=== PATIENT | female | born 1960 | race African-American/Black ===

== ENCOUNTER 2017-02-27 13:38 | Outpatient (CLI) | payer BC | END 2017-02-27 13:39 | disposition home or self-care (01) | LOC: BICCT 13:38 | PROVIDERS: ATTEND Orthopaedic Surgery | DX: M54.16 Radiculopathy, lumbar region (principal); M48.061 Spinal stenosis, lumbar region without neurogenic claudication; Z98.1 Arthrodesis status | CPT/HCPCS: 72131 ==

== ENCOUNTER 2018-09-11 10:04 | Outpatient (CLI) | payer BC ==
--- NOTE | 2018-09-11 11:07 | BD ---
DEXA BONE DENSITOMETRY: (Dual energy X-ray Absorptiometry) 09/11/2018 HISTORY: A 58-year-old black female for age-related, post menopausal osteoporosis screening examination. Heig ht 69 in. Weight 208 lbs. Age of menopause 33 years. COMPARISON: None available. FINDINGS: The bone mineral density (BMD) is given in grams per square centimeter (g/cm2): LUMBAR SPINE: BMD(g/cm2) T-score Z-score L1: 1.107 1.1 1.6 L2: 1.109 0.7 1.3 L3: 1.112 0.3 0.9 L4: 1.171 1.0 1.6 Total: 1.125 0.7 1.3 HIP: Femoral neck: 0.795 -0.5 -0.1 Total: 0.880 -0.5 -0.2 IMPRESSION: 1) The mean bone mineral density of the lumbar spine is normal. Fracture risk is not increased. 2) The bone mineral density of the femoral neck is normal. Fracture risk is not increased. JN R POS: TPC
== END 2018-09-11 10:05 | disposition home or self-care (01) ==
LOC: BICMAMMO 10:04
PROVIDERS: ATTEND Internal Medicine
DX: Z13.820 Encounter for screening for osteoporosis (principal)
CPT/HCPCS: 77080

== ENCOUNTER 2018-11-30 08:51 | Outpatient (CLI) | payer BC ==
--- NOTE | 2018-11-30 09:37 | MMO ---
Bilateral MAMMO Bilat Screen [facility]. CLINICAL HISTORY: Patient is 58 years old and is seen for screening. The patient has no family history of breast cancer. The patient has no personal history of cancer. VIEWS: The views performed were: bilateral craniocaudal with tomosynthesis and bilateral mediolateral oblique with tomosynthesis. FILMS COMPARED: The present examination has been compared to prior imaging studies performed at [facility] on 11/21/2014, 11/23/2015, 11/27/2016 and 11/28/2017. MAMMOGRAM FINDINGS: There are scattered fibroglandular densities. There are no suspicious masses, suspicious calcifications, or new areas of architectural distortion. IMPRESSION: THERE IS NO MAMMOGRAPHIC EVIDENCE OF MALIGNANCY. A ROUTINE FOLLOW-UP MAMMOGRAM IN 1 YEAR IS RECOMMENDED. THE RESULTS OF THIS EXAM WERE SENT TO THE PATIENT. ACR BI-RADS Category 1 - Negative MAMMOGRAPHY NOTE: 1. A negative mammogram report should not delay a biopsy if a dominant of clinically suspicious mass is present. 2. Approximately 10% to 15% of breast cancers are not detected by mammography. 3. Adenosis and dense breasts may obscure an underlying neoplasm. Reported by: JACKSON SWANSON MD Electonically Signed: [id number]
== END 2018-11-30 08:52 | disposition home or self-care (01) ==
LOC: BICMAMMO 08:51
PROVIDERS: ATTEND Internal Medicine
DX: Z12.31 Encounter for screening mammogram for malignant neoplasm of breast (principal)
CPT/HCPCS: 77063; 77067

== ENCOUNTER 2019-12-02 09:01 | Outpatient (CLI) | payer BC ==
--- NOTE | 2019-12-02 13:10 | MMO ---
Bilateral MAMMO Bilat Screen [facility]. CLINICAL HISTORY: Patient is 59 years old and is seen for screening. The patient has no family history of breast cancer. The patient has no personal history of cancer. VIEWS: The views performed were: bilateral craniocaudal with tomosynthesis and bilateral mediolateral oblique with tomosynthesis. FILMS COMPARED: The present examination has been compared to prior imaging studies performed at [facility] on 11/23/2015, 11/27/2016, 11/28/2017 and 11/30/2018. This study has been interpreted with the assistance of computer-aided detection. MAMMOGRAM FINDINGS: There are scattered fibroglandular densities. There are no suspicious masses, suspicious calcifications, or new areas of architectural distortion. IMPRESSION: THERE IS NO MAMMOGRAPHIC EVIDENCE OF MALIGNANCY. A ROUTINE FOLLOW-UP MAMMOGRAM IN 1 YEAR IS RECOMMENDED. THE RESULTS OF THIS EXAM WERE SENT TO THE PATIENT. ACR BI-RADS Category 1 - Negative MAMMOGRAPHY NOTE: 1. A negative mammogram report should not delay a biopsy if a dominant of clinically suspicious mass is present. 2. Approximately 10% to 15% of breast cancers are not detected by mammography. 3. Adenosis and dense breasts may obscure an underlying neoplasm. Reported by: MARY AGUILA MD Electonically Signed: [id number]
== END 2019-12-02 09:02 | disposition home or self-care (01) ==
LOC: BICMAMMO 09:01
PROVIDERS: ATTEND Internal Medicine
DX: Z12.31 Encounter for screening mammogram for malignant neoplasm of breast (principal)
CPT/HCPCS: 77063; 77067

== ENCOUNTER 2020-01-27 13:31 | Outpatient (CLI) | payer BC ==
--- NOTE | 2020-01-27 15:46 | RAD ---
EXAM: CERVICAL SPINE SERIES,FIVE VIEWS INCLUDING RIGHT AND LEFT OBLIQUE VIEWS: 01/27/20 HISTORY: Cervicalgia, bilateral arm pain and tingling. Very mild disc osteophytosis and facet arthrosis. The tip of the odontoid and upper C1 are partially obscured on the AP open mouth view. No evidence for acute fracture or dislocation. IMPRESSION: Mild generalized spondylosis. POS: AH
--- NOTE | 2020-01-27 15:49 | RAD ---
EXAM: LUMBAR SPINE FIVE VIEWS INCLUDING OBLIQUE VIEWS: 01/27/20 HISTORY: Low back pain, history of arthritis. FINDINGS: Postoperative changes at L4-5 with intradiscal prosthesis. Minimal generalized spondylosis. No eviden ce for acute fracture or dislocation. Surgical clips overlie the left lateral sacral region. IMPRESSION: Postoperative changes at L4-5. Generalized lumbar spondylosis. POS: AH
== END 2020-01-27 13:32 | disposition home or self-care (01) ==
LOC: BICRAD 13:31
PROVIDERS: ATTEND Internal Medicine Rheumatology
DX: M54.2 Cervicalgia (principal); M54.5 Low back pain; M47.816 Spondylosis without myelopathy or radiculopathy, lumbar region; M47.812 Spondylosis without myelopathy or radiculopathy, cervical region; Z98.890 Other specified postprocedural states
CPT/HCPCS: 72050; 72110

== ENCOUNTER 2020-05-16 09:41 | Outpatient (CLI) | payer BC ==
--- NOTE | 2020-05-16 10:03 | RAD ---
EXAM: Chest 2 views: HISTORY: Cough and Covid pneumonia COMPARISON: None. FINDINGS: There is a normal-sized cardiomediastinal silhouette. Subtle peripheral mixed opacities are seen in t he lung bases. No pleural effusion or pneumothorax. Biapical pleural thickening. No acute osseous abnormality. IMPRESSION: Scattered bibasilar infiltrates
== END 2020-05-16 09:42 | disposition home or self-care (01) ==
LOC: BICRAD 09:41
PROVIDERS: ATTEND Internal Medicine
DX: U07.1 COVID-19 (principal); J12.82 Pneumonia due to coronavirus disease 2019; R05 Cough; R91.8 Other nonspecific abnormal finding of lung field
CPT/HCPCS: 71046

== ENCOUNTER 2020-08-24 12:52 | Outpatient (CLI) | payer BC | END 2020-08-24 12:53 | disposition home or self-care (01) | LOC: BICRAD 12:52 | PROVIDERS: ATTEND Internal Medicine | DX: J18.9 Pneumonia, unspecified organism (principal) | CPT/HCPCS: 71046 ==

== ENCOUNTER 2020-12-07 09:53 | Outpatient (CLI) | payer BC | END 2020-12-07 09:54 | disposition home or self-care (01) | LOC: BICMAMMO 09:53 | PROVIDERS: ATTEND Internal Medicine | DX: Z12.31 Encounter for screening mammogram for malignant neoplasm of breast (principal) | CPT/HCPCS: 77063; 77067 ==

== ENCOUNTER 2020-12-08 10:40 | Outpatient (CLI) | payer BC | END 2020-12-08 10:41 | disposition home or self-care (01) | LOC: BICULT 10:40 | PROVIDERS: ATTEND Internal Medicine | DX: R94.4 Abnormal results of kidney function studies (principal); M79.7 Fibromyalgia; M54.41 Lumbago with sciatica, right side; M25.572 Pain in left ankle and joints of left foot; M79.601 Pain in right arm; Z90.49 Acquired absence of other specified parts of digestive tract | CPT/HCPCS: 76700 ==

== ENCOUNTER 2021-09-04 12:35 | Outpatient (CLI) | payer BC | END 2021-09-04 12:36 | disposition home or self-care (01) | LOC: BICRAD 12:35 | PROVIDERS: ATTEND Internal Medicine | DX: R10.2 Pelvic and perineal pain (principal); M16.0 Bilateral primary osteoarthritis of hip | CPT/HCPCS: 72170 ==

== ENCOUNTER 2021-12-14 10:04 | Outpatient (CLI) | payer BC | END 2021-12-14 10:05 | disposition home or self-care (01) | LOC: BICMAMMO 10:04 | PROVIDERS: ATTEND Internal Medicine | DX: Z12.31 Encounter for screening mammogram for malignant neoplasm of breast (principal) | CPT/HCPCS: 77063; 77067 ==

== ENCOUNTER 2022-01-22 19:00 | Outpatient (CLI) | payer BC | END 2022-01-22 19:01 | disposition home or self-care (01) | LOC: SLEEPLAB 19:00 | PROVIDERS: ATTEND Internal Medicine Pulmonary Disease | DX: G47.33 Obstructive sleep apnea (adult) (pediatric) (principal); R53.83 Other fatigue; R06.83 Snoring; G47.00 Insomnia, unspecified; J30.2 Other seasonal allergic rhinitis; E66.9 Obesity, unspecified; Z68.31 Body mass index [BMI] 31.0-31.9, adult | CPT/HCPCS: 95810 ==

== ENCOUNTER 2023-02-03 10:45 | Outpatient (CLI) | payer BC | END 2023-02-03 10:46 | disposition home or self-care (01) | LOC: BICMAMMO 10:45 | PROVIDERS: ATTEND Internal Medicine | DX: Z12.31 Encounter for screening mammogram for malignant neoplasm of breast (principal) | CPT/HCPCS: 77063; 77067 ==

== ENCOUNTER 2024-02-05 10:51 | Outpatient (CLI) | payer BC, MEDICARE | END 2024-02-05 10:52 | disposition home or self-care (01) | LOC: BICMAMMO 10:51 | PROVIDERS: ATTEND Nurse Practitioner | DX: Z12.31 Encounter for screening mammogram for malignant neoplasm of breast (principal) | CPT/HCPCS: 77063; 77067 ==